=== PATIENT | male | born 1980 | race American Indian/Alaskan Native ===

== ENCOUNTER 2020-12-04 12:11 | Emergency (ER) | payer SELFPAY ==
[2020-12-04 13:10] VITALS: BP 129/82
--- NOTE | 2020-12-04 15:49 | Emergency Department Report ---
Chief Complaint: Eye Problems Stated Complaint: EYE PAINS - HPI History of Present Illness: 40-year-old -[place] male presents to the emergency room for left lower eyelid swelling. Patient states that it started this morning. Patient is not taking anything for his discomfort. Patient states this happened before when he had allergic reaction. Patient is allergic to bananas shellfish tomatoes. Patient state he had some noodles yesterday and not sure if that could've caused it. As patient does not know what flavor it was. Patient denies any visual change. - Exam Vital Signs: Vital Signs 12/04/20 13:07 Temperature 98.6 F Pulse Rate 89 Respiratory 17 Rate Blood Pressure 129/82 [Right] O2 Sat by Pulse 98 Oximetry Physical Exam: Patient is alert and oriented x3 no acute distress nontoxic in appearance Right eye lower lid mild swelling conjunctiva is red bilateral. No tenderness to touch. Respiratory no acute distress Cardiac regular rate Extremities patient is amatory. MSE screening note: Focused history and physical exam performed. Due to findings the following was ordered: 40-year-old -[place] male presents to the emergency room for left lower eyelid swelling. Patient states that it started this morning. Patient is not taking anything for his discomfort. Patient states this happened before when he had allergic reaction. Patient is allergic to bananas shellfish tomatoes. Patient state he had some noodles yesterday and not sure if that could've caused it. As patient does not know what flavor it was. Patient denies any visual change. ED Disposition for MSE Disposition: DC-01 TO HOME OR SELFCARE Is pt being admited?: No Does the pt Need Aspirin: No Condition: Stable Instructions: Allergic Conjunctivitis, Adult Additional Instructions: Recommend [id number] Zaditor and Benadryl/or Claritin. Follow-up at the urgent care if any further concerns. Referrals: [facility] [Provider Group] - 3-5 Days Time of Disposition: 15:52
== END 2020-12-04 16:17 | disposition home or self-care (01) ==
LOC: ED 12:11
DX: H57.89 Other specified disorders of eye and adnexa (principal)
CPT/HCPCS: 99282

== ENCOUNTER 2021-10-07 01:04 | Emergency (ER) | payer SELFPAY ==
[2021-10-07] MEDS ORDERED: predniSONE 20 MG TAB PO ONE (08:27)
[2021-10-07] MEDS ORDERED: KETOROLAC 60 MG/2 ML INJ IM ONE (08:27)
--- NOTE | 2021-10-07 08:30 | Emergency Department Report ---
ED Headache HPI - General Chief Complaint: Headache Stated Complaint: HEADACHE Time Seen by Provider: 10/07/21 08:00 Source: patient Exam Limitations: no limitations - History of Present Illness Initial Comments: Patient is a pleasant 41-year-old male comes to the ER with a several day history of headache. He cannot tell if this is his usual migraine or if it is sinus. He has symptoms of both. He also has acute on chronic sinus infections. He has no fever or chills. No cough. No purulent sputum. The light does hurt his eyes. He has no nausea or vomiting. He was prior treated for his migraines in [place]. He states that he saw a neurologist there. He is on no home medications. He is neurologically intact. He denies any trauma Allergies/Adverse Reactions: Allergies banana Allergy (Verified 12/04/20 13:11) Swelling shellfish derived Allergy (Verified 12/04/20 13:11) Swelling tomato Allergy (Verified 12/04/20 13:11) Swelling Home Medications: Ambulatory Orders Butalb/Acetaminophen/Caffeine [Fioricet 50-300-40 mg CAP] 1 cap PO Q6HR PRN #12 cap 10/07/21 Cetirizine HCl [ZyrTEC] 10 mg PO DAILY #30 capsule 10/07/21 Fluticasone [Flonase] 1 spray NS QDAY #1 bottle 10/07/21 predniSONE [Deltasone] 20 mg PO DAILY #5 tablet 10/07/21 ED Review of Systems ROS: Stated complaint: HEADACHE Other details as noted in HPI Comment: All other systems reviewed and negative ED Past Medical Hx - Past Medical History Previous Medical History?: Yes Hx Headaches / Migraines: Yes - Surgical History Past Surgical History?: Yes Additional Surgical History: left ring finger - Family History Family history: no significant - Social History Smoking Status: Never Smoker Substance Use Type: None - Medications Home Medications: Home Medications Medication Instructions Recorded Confirmed Last Taken Type Butalb/Acetaminophen/Caffeine 1 cap PO Q6HR PRN #12 cap 10/07/21 Unknown Rx [Fioricet 50-300-40 mg CAP] Cetirizine HCl [ZyrTEC] 10 mg PO DAILY #30 capsule 10/07/21 Unknown Rx Fluticasone [Flonase] 1 spray NS QDAY #1 bottle 10/07/21 Unknown Rx predniSONE [Deltasone] 20 mg PO DAILY #5 tablet 10/07/21 Unknown Rx ED Physical Exam - General Limitations: No Limitations General appearance: alert, in no apparent distress - Head Head exam: Present: atraumatic, normocephalic - Eye Eye exam: Present: normal appearance - ENT ENT exam: Present: mucous membranes moist - Neck Neck exam: Present: normal inspection - Respiratory Respiratory exam: Present: normal lung sounds bilaterally. Absent: respiratory distress - Cardiovascular Cardiovascular Exam: Present: regular rate, normal rhythm. Absent: systolic murmur, diastolic murmur, rubs, gallop - GI/Abdominal GI/Abdominal exam: Present: soft, normal bowel sounds - Rectal Rectal exam: Present: deferred - Extremities Exam Extremities exam: Present: normal inspection - Back Exam Back exam: Present: normal inspection - Neurological Exam Neurological exam: Present: alert, oriented X3 - Psychiatric Psychiatric exam: Present: normal affect, normal mood - Skin Skin exam: Present: warm, dry, intact, normal color. Absent: rash ED Course Vital Signs 10/07/21 10/07/21 10/07/21 03:19 08:53 09:19 Temperature 98.2 F 97.8 F Pulse Rate 63 78 Respiratory 18 16 16 Rate Blood Pressure 123/77 Blood Pressure 134/78 [Right] O2 Sat by Pulse 98 100 Oximetry ED Medical Decision Making - Medical Decision Making Vital Signs 10/07/21 10/07/21 10/07/21 03:19 08:53 09:19 Temperature 98.2 F 97.8 F Pulse Rate 63 78 Respiratory 18 16 16 Rate Blood Pressure 123/77 Blood Pressure 134/78 [Right] O2 Sat by Pulse 98 100 Oximetry Patient medicated for pain in the ER. He reports relief. On discharge exam vitals remained stable. Patient remains neurologically intact. Patient being discharged home with discharge plan of care including diet, activity, medications and follow-up. He verbalizes understanding of plan of care - Differential Diagnosis Acute on chronic migraine/sinusitis Critical care attestation.: If time is entered above; I have spent that time in minutes in the direct care of this critically ill patient, excluding procedure time. ED Disposition Clinical Impression: Migraine Qualifiers: Migraine type: other Sinusitis Qualifiers: Sinusitis location: frontal Recurrence: recurrent Disposition: 01 HOME / SELF CARE / HOMELESS Is pt being admited?: No Does the pt Need Aspirin: No Condition: Stable Instructions: Sinusitis, Adult, [id number], Migraine Headache Additional Instructions: Medications as ordered today. They will help with your sinus and headache. Your headache may be a combination of your history of migraines as well as your sinus infection. Stay well-hydrated with water Motrin or Tylenol can be used with these medications follow-up with PCP for your nonmedical emergencies. Have given you referral below I have also given you referral for a local neurologist Prescriptions: predniSONE [Deltasone] 20 mg PO DAILY #5 tablet Butalb/Acetaminophen/Caffeine [Fioricet 50-300-40 mg CAP] 1 cap PO Q6HR PRN #12 cap PRN Reason: Headache Fluticasone [Flonase] 1 spray NS QDAY #1 bottle Cetirizine HCl [ZyrTEC] 10 mg PO DAILY #30 capsule Referrals: BUNNY PENN MD [Staff Physician] - 3-5 Days CLARA LEMUS MD [Staff Physician] - 3-5 Days Time of Disposition: 08:40
[2021-10-07 09:20] VITALS: BP 134/78
== END 2021-10-07 09:00 | disposition home or self-care (01) ==
LOC: ED 01:04
DX: G43.909 Migraine, unspecified, not intractable, without status migrainosus (principal); J32.9 Chronic sinusitis, unspecified
CPT/HCPCS: 96372; 99282; J1885